=== PATIENT | female | born 1940 | race Caucasian/White ===

== ENCOUNTER → 2016-06-07 | Outpatient (CLI) | payer MEDICARE, OTHER | LOC: KOH-I 13:00 | DX: G45.9 Transient cerebral ischemic attack, unspecified (principal) | CPT/HCPCS: 70450; 93880 ==

== ENCOUNTER → 2016-07-05 | Outpatient (CLI) | payer MEDICARE, OTHER | LOC: KOH-I 06-21 10:00 | DX: I65.21 Occlusion and stenosis of right carotid artery (principal) | CPT/HCPCS: 70498; Q9963 ==

== ENCOUNTER → 2016-07-25 | Outpatient (CLI) | payer MEDICARE, OTHER | LOC: EXRD 07-22 13:30 | DX: Z13.820 Encounter for screening for osteoporosis (principal); M85.89 Other specified disorders of bone density and structure, multiple sites | CPT/HCPCS: 77080 ==

== ENCOUNTER → 2020-02-24 | Outpatient (CLI) | payer MEDICARE, OTHER ==
[~2020-02-24] MED LIST: CALCIUM600 MG PO; COLESTIPOL HCL1 GM PO; DOXYCYCLINE HY100 MG PO; ELIQUIS5 MG PO; FUROSEMIDE40 MG PO; HAIR SKIN NAIL1 EACH PO; LEVOTHYROXINE25 MCG PO; MEGA BIOTIN10000 MCG PO; OMNICEF 300 MG300 MG PO; POTASSIUM CHLO20 ME1 PO; PRAVACHOL40 MG PO; SOTALOL80 MG PO; TESSALON PERLE100 MG PO; TOPROL XL25 MG PO; TYLENOL 325MG325 MG PO; VITAMIN D31000 UNIT PO
[2020-02-24 14:24] LABS: HEMOGLOBIN 11.3 gm/dl (12.3-15.3); RED BLOOD COUNT 3.64 M/UL (4.00-5.10); WHITE BLOOD COUNT 3.3 K/UL (4.5-11.0)
== END ==
LOC: LAB 13:59
PROVIDERS: Internal Medicine Interventional Cardiology
DX: E78.00 Pure hypercholesterolemia, unspecified (principal)
CPT/HCPCS: 36415; 80048; 80061; 80076; 85027

== ENCOUNTER → 2020-07-24 | Outpatient (CLI) | payer MEDICARE, OTHER ==
[~2020-07-24] VITALS: Ht 166.4 cm; Wt 58.1 kg
== END ==
LOC: OPSV 11:59
DX: M81.0 Age-related osteoporosis without current pathological fracture (principal); K90.49 Malabsorption due to intolerance, not elsewhere classified
CPT/HCPCS: 96372

== ENCOUNTER → 2020-09-13 | Outpatient (CLI) | payer MEDICARE, OTHER ==
[2020-09-13 17:33] LABS: HEMOGLOBIN 12.9 gm/dl (12.3-15.3); RED BLOOD COUNT 3.98 M/UL (4.00-5.10); WHITE BLOOD COUNT 3.2 K/UL (4.5-11.0)
== END ==
LOC: LAB 15:48
PROVIDERS: Internal Medicine Hematology & Oncology
DX: C18.9 Malignant neoplasm of colon, unspecified (principal)
CPT/HCPCS: 36415; 80053; 82378; 85025

== ENCOUNTER → 2020-11-30 | Outpatient (CLI) | payer OTHER ==
[2020-11-30 16:30] LABS: HEMOGLOBIN 11.9 gm/dl (12.3-15.3); RED BLOOD COUNT 3.68 M/UL (4.00-5.10); WHITE BLOOD COUNT 3.6 K/UL (4.5-11.0)
== END ==
LOC: LAB 15:15
PROVIDERS: Internal Medicine Interventional Cardiology
DX: E78.00 Pure hypercholesterolemia, unspecified (principal)
CPT/HCPCS: 36415; 80048; 80061; 80076; 85027

== ENCOUNTER → 2020-12-11 | Outpatient (CLI) | payer MEDICARE, OTHER | LOC: KOH-I 14:17 | DX: C18.9 Malignant neoplasm of colon, unspecified (principal); R91.8 Other nonspecific abnormal finding of lung field; K76.89 Other specified diseases of liver; E27.8 Other specified disorders of adrenal gland | CPT/HCPCS: 71250; 74176 ==

== ENCOUNTER → 2021-03-08 | Outpatient (CLI) | payer MEDICARE, OTHER ==
[2021-03-08 12:09] LABS: HEMOGLOBIN 12.4 gm/dl (12.3-15.3); RED BLOOD COUNT 3.92 M/UL (4.00-5.10); WHITE BLOOD COUNT 3.4 K/UL (4.5-11.0)
[2021-03-09 08:14] LABS: ALBUMIN 4.5 g/dL (3.6-4.6); ALKALINE PHOSPHATASE 58 IU/L (44-121); ALT (SGPT) 13 IU/L (0-32); AST (SGOT) 24 IU/L (0-40); BILIRUBIN, DIRECT 0.11 mg/dL (0.00-0.40); BILIRUBIN, TOTAL 0.2 mg/dL (0.0-1.2); BUN 22 mg/dL (8-27); BUN/CREATININE RATIO 18 (12-28); CALCIUM, SERUM 9.5 mg/dL (8.7-10.3); CARBON DIOXIDE, TOTAL 26 mmol/L (20-29); CHLORIDE, SERUM 101 mmol/L (96-106); CHOLESTEROL, TOTAL 210 mg/dL (100-199); CREATININE, SERUM 1.25 mg/dL (0.57-1.00); EGFR IF AFRICN AM 46 (>59); EGFR IF NONAFRICN AM 40 (>59); GLUCOSE, SERUM 90 mg/dL (65-99); HDL CHOLESTEROL 128 mg/dL (>39); LDL CHOLESTEROL CALC 70 mg/dL (0-99); LDL/HDL RATIO 0.5 ratio (0.0-3.2); POTASSIUM, SERUM 4.6 mmol/L (3.5-5.2); PROTEIN, TOTAL 6.8 g/dL (6.0-8.5); SODIUM, SERUM 139 mmol/L (134-144); T. CHOL/HDL RATIO 1.6 ratio (0.0-4.4); TRIGLYCERIDES 71 mg/dL (0-149)
== END ==
LOC: LAB 11:38
PROVIDERS: Internal Medicine Interventional Cardiology
DX: E78.00 Pure hypercholesterolemia, unspecified (principal)
CPT/HCPCS: 36415; 80048; 80061; 80076; 85027

== ENCOUNTER → 2021-03-08 | Outpatient (CLI) | payer MEDICARE, OTHER | LOC: KOH-I 15:22 | DX: M25.512 Pain in left shoulder (principal); M19.012 Primary osteoarthritis, left shoulder | CPT/HCPCS: 73030; 73060 ==

== ENCOUNTER → 2021-08-20 | Outpatient (CLI) | payer MEDICARE, OTHER ==
[2021-08-20 13:20] LABS: HEMOGLOBIN 13.1 gm/dl (12.3-15.3); WHITE BLOOD COUNT 3.9 K/UL (4.5-11.0)
== END ==
LOC: LAB 12:50
PROVIDERS: Internal Medicine Interventional Cardiology
DX: E78.00 Pure hypercholesterolemia, unspecified (principal)
CPT/HCPCS: 36415; 80048; 80061; 80076; 85027